=== PATIENT | female | born 1930 | race Caucasian/White ===

== ENCOUNTER 2016-11-07 12:16 | Emergency (ER) | payer OTHER ==
[~2016-11-07 12:16] MED LIST: CELECOXIB200 MG PO; COREG6.25 MG PO; COZAAR100 MG PO; EFFEXOR XR150 MG PO; GLIPIZIDE10 MG PO; I-CAPS WITH LU1 EACH PO; K-DUR20 ME1 PO; KOMBIGLYZE XR1 EAC2 PO; LASIX20 MG PO; NEXIUM PO; SIMVASTATIN40 MG PO
[2016-11-07] MEDS ORDERED: COREG6.25 MG PO (12:42)
[2016-11-07] MEDS ORDERED: COZAAR100 MG PO (12:42)
[2016-11-07] MEDS ORDERED: GLUCOTROL PO (12:43)
[2016-11-07] MEDS ORDERED: OMEPRAZOLE20 M2 PO (12:43)
[2016-11-07] MEDS ORDERED: K-TAB ER20 MEQ PO (12:43)
[2016-11-07] MEDS ORDERED: VENLAFAXINE HC150 M1 PO (12:44)
[2016-11-07] MEDS ORDERED: SIMVASTATIN40 MG PO (12:44)
[2016-11-07] MEDS ORDERED: TRADJENTA5 MG PO (12:44)
[2016-11-07] MEDS ORDERED: CELECOXIB200 M1 (12:45)
[2016-11-07] MEDS ORDERED: LASIX PO (12:45)
[2016-11-07] MEDS ORDERED: PIOGLITAZONE45 MG PO (12:45)
[2016-11-07 13:36] LABS: URINE APPEARANCE CLEAR; URINE BILIRUBIN NEG (NEG); URINE BLOOD TRACE-LYSED (NEG); URINE COLOR YELLOW; URINE KETONE NEG (NEG); URINE LEUKOCYTE ESTERASE 2+ (NEG); URINE NITRATE NEG (NEG); URINE PH 5.5 (5-8); URINE PROTEIN NEG (NEG); URINE SOURCE CLEAN CATCH; URINE UROBILINOGEN 0.2 MG/DL (NORM)
[2016-11-07 13:39] LABS: MICRO INDICATED? YES; URINE GLUCOSE NORM (NORM)
[2016-11-07 13:49] LABS: CULTURE INDICATED? YES; URINE BACTERIA 3+ (NEG); URINE RBC 0-2 /[HPF] (0-2); URINE SQUAMOUS EPITHELIAL CELL OCCAS /[HPF]; URINE WBC 25-50 /[HPF] (0-5)
== END 2016-11-07 14:18 | disposition home or self-care (01) ==
LOC: SED 12:16
PROVIDERS: Emergency Medicine
DX: N30.00 Acute cystitis without hematuria (principal); E11.65 Type 2 diabetes mellitus with hyperglycemia; I10 Essential (primary) hypertension; K21.9 Gastro-esophageal reflux disease without esophagitis; Z90.49 Acquired absence of other specified parts of digestive tract
CPT/HCPCS: 81003; 82947; 87086; 87088; 87186; 99283

== ENCOUNTER 2016-12-18 21:29 | Emergency (ER) | payer OTHER ==
--- NOTE | ~2016-12-18 | EKG ---
PATIENT: EMMA SILVA UNIT #: [id number] Ventricular Rate: 113 BPM Atrial Rate: 75 BPM QRS Duration: 86 ms Q-T Interval: 332 ms QTC Calculation(Bezet): 455 ms Calculated R [place]: -10 degrees Calculated T [place]: 118 degrees Diagnosis Line: Atrial fibrillation with rapid ventricular Diagnosis Line: response Diagnosis Line: Possible Anterior infarct , age undetermined Diagnosis Line: Abnormal ECG Diagnosis Line: When compared with ECG of 28-DEC-2014 12:24, Diagnosis Line: Atrial fibrillation has replaced Sinus rhythm Diagnosis Line: ST now depressed in Lateral leads Diagnosis Line: Nonspecific T wave abnormality no longer evident Diagnosis Line: in Inferior leads Diagnosis Line: Confirmed by REILLY GUERRA MD ([id number]) on Diagnosis Line: 12/20/2016 9:02:18 AM INTERPRETING MD: CHARLIE SANDERS
--- NOTE | ~2016-12-18 | CR72 ---
[facility]. [facility] A Service of [facility] & [facility] RADIOLOGY TEXT RESULTS PATIENT: EMMA SILVA LOCATION: SED : 32 UNIT #: [id number] AGE: [address]: Tenzin Lee MD SEX: F ORDER DR: [id number] [address] [address] [id number] E MR#: [id number] Acc #: [id number] NAME: EMMA SILVA : 1930 SEX: F STUDY DATE/TIME: 12/18/2016 22:23 UNIT: SED ROOM: STUDY DESCRIPTION: CR Chest Single View Portable Attending Physician: Tenzin Lee M.D. Ordering Physician: eTnzin Lee M.D. Primary Care Physician: Juan Alcazar M.D. MEDICAL IMAGING REPORT This report is preliminary unless electronic signature is present. EXAM Portable chest INDICATION Wheezing, high fever starting today. FINDINGS A portable view of the chest was obtained. There are low lung volumes. The heart size and vascularity are normal. There is interstitial prominence but there are no focal infiltrates. The bones are normal. IMPRESSION There does seem to be some interstitial prominence but this is probably due to poor inspiration. There are no focal infiltrates. Dictated by... Morgan Summers M.D. THIS IS AN ELECTRONICALLY VERIFIED REPORT Morgan Summers M.D. at 12/19/2016 5:54 AM LETY/yonas TD: 12/18/2016 23:54 JOB #: [id number] MEDICAL IMAGING REPORT Page 1 of 1
--- NOTE | ~2016-12-18 | CT71 ---
[facility] A Service [facility] RADIOLOGY TEXT RESULTS PATIENT: EMMA SILVA LOCATION: SED : 32 UNIT #: [id number] AGE: [address]: Tenzin Lee MD SEX: F ORDER DR: [id number] [place] [id number] E MR#: [id number] Acc #: [id number] NAME: EMMA SILVA : 1930 SEX: F STUDY DATE/TIME: 12/18/2016 22:27 UNIT: SED ROOM: STUDY DESCRIPTION: CT Head Wo Contrast Attending Physician: Tenzin Lee M.D. Ordering Physician: Tenzin Lee M.D. Primary Care Physician: Juan Alcazar M.D. MEDICAL IMAGING REPORT This report is preliminary unless electronic signature is present. EXAM CT scan of the brain without contrast. INDICATIONS Altered mental status with weakness. The patient is not herself. Symptoms started today. TECHNIQUE Unenhanced images were obtained through the brain. This CT exam was performed with one or more of the following radiation dose reduction techniques: automatic exposure control, adjustment of mA and/or kV according to patient size, and iterative reconstruction. FINDINGS There is marked generalized atrophy. There are no masses or extraaxial fluid collections or hemorrhage. IMPRESSION Generalized atrophy, otherwise, normal. Dictated by... Morgan Summers M.D. THIS IS AN ELECTRONICALLY VERIFIED REPORT Morgan Summers M.D. at 12/19/2016 5:54 AM Lalito TD: 12/18/2016 23:40 JOB #: [id number] [facility] A Service [facility] RADIOLOGY TEXT RESULTS PATIENT: EMMA SILVA LOCATION: SED : 32 UNIT #: [id number] AGE: [address]: Tenzin Lee MD SEX: F ORDER DR: MEDICAL IMAGING REPORT Page 1 of 1
[~2016-12-18 21:29] MED LIST changes: +CELECOXIB200 M1; +GLUCOTROL PO; +K-TAB ER20 MEQ PO; +LASIX PO; +OMEPRAZOLE20 M2 PO; +PIOGLITAZONE45 MG PO; +TRADJENTA5 MG PO; +VENLAFAXINE HC150 M1 PO
[2016-12-18 22:20] LABS: URINE SOURCE CLEAN CATCH
[2016-12-18 22:23] LABS: URINE APPEARANCE CLEAR; URINE BILIRUBIN NEG (NEG); URINE BLOOD 1+ (NEG); URINE COLOR YELLOW; URINE KETONE NEG (NEG); URINE LEUKOCYTE ESTERASE 2+ (NEG); URINE NITRATE POS (NEG); URINE PROTEIN TRACE (NEG); URINE UROBILINOGEN 0.2 MG/DL (NORM)
[2016-12-18 22:23] LABS: BASOPHIL% 0.1 % (0-2.5); EOSINOPHIL% 0.2 % (0.0-7.0); HEMATOCRIT 37.2 % (35.0-45.0); HEMOGLOBIN 12.4 gm/dL (12.0-16.0); INR 1.1; LYMPHOCYTE# 0.2 X10e3 (1.0-3.5); LYMPHOCYTE% 1.8 % (17.0-45.0); MEAN CORPUSCULAR HEMOGLOBIN 28.8 PG (28-34); MEAN CORPUSCULAR HGB CONC 33.4 g/dL (30-36); MONOCYTE# 0.3 X10e3 (0-1.0); NEUTROPHIL# 10.1 X10e3 (1.5-7.1); NEUTROPHIL% 94.9 % (40-75); PLATELET COUNT 168 X10e3 (140-420); RED BLOOD COUNT 4.33 X10e (3.90-5.30); RED CELL DISTRIBUTION WIDTH 17.7 % (11.0-15.5); WHITE BLOOD COUNT 10.7 X10e3 (4.0-10.5)
[2016-12-18 22:24] LABS: MICRO INDICATED? YES; URINE GLUCOSE 50 MG/DL (NORM)
[2016-12-18 22:25] LABS: DIFF IND NO
[2016-12-18 22:25] LABS: CULTURE INDICATED? YES; URINE BACTERIA 2+ (NEG); URINE RBC 0-2 /[HPF] (0-2); URINE SQUAMOUS EPITHELIAL CELL FEW /[HPF]
[2016-12-18 22:31] LABS: PARTIAL THROMBOPLASTIN TIME 24.5 SECONDS (25.6-38.1)
[2016-12-18 22:52] LABS: BUN/CREATININE RATIO 21.25; CALCIUM SERUM 8.3 mg/dL (8.4-10.2); CREATININE SERUM 1.6 mg/dL (0.6-1.4); GLOM FILT RATE Estimated 29.5 mL/min (>60); POTASSIUM 4.5 mmol/L (3.5-5.1)
[2016-12-19 11:12] LABS: POC - CKMB <1.0 ng/mL (0.0-7.9); POC - TROPONIN <0.05 ng/mL (<=0.05)
== END 2016-12-19 02:38 ==
LOC: SED 21:29
PROVIDERS: Emergency Medicine
DX: R41.0 Disorientation, unspecified (principal); N39.0 Urinary tract infection, site not specified; I48.91 Unspecified atrial fibrillation; E11.9 Type 2 diabetes mellitus without complications; I10 Essential (primary) hypertension; K21.9 Gastro-esophageal reflux disease without esophagitis; E78.5 Hyperlipidemia, unspecified; Z90.49 Acquired absence of other specified parts of digestive tract; Z79.899 Other long term (current) drug therapy
CPT/HCPCS: 36415; 51702; 70450; 71010; 80048; 81003; 82553; 83605; 84484; 85025; 85610; 85730; 87086; 87088; 87186; 93005; 96361; 96374; 99291; J0696

== ENCOUNTER 2016-12-25 15:40 | Emergency (ER) | payer OTHER ==
[~2016-12-25] VITALS: Ht 167.6 cm; Wt 85.7 kg
--- NOTE | ~2016-12-25 | US84 ---
[id number] [address] [address] [id number] E MR#: [id number] Acc #: [id number] NAME: EMMA SILVA : 1930 SEX: F STUDY DATE/TIME: 12/25/2016 17:46 UNIT: SED ROOM: STUDY DESCRIPTION: US LE Veins Complete Noam Stdy Attending Physician: Bob Fernando M.D. Ordering Physician: [id number] Abdullahi Fernando Primary Care Physician: Juan Alcazar M.D. MEDICAL IMAGING REPORT This report is preliminary unless electronic signature is present. EXAM Bilateral lower extremity venous ultrasound HISTORY Bilateral lower extremity swelling for 1 week. FINDINGS Ultrasound examination of the lower extremity veins was performed from the groin to the calf bilaterally with lundberg-scale, color Doppler and spectral Doppler evaluation. The visualized veins are patent and compressible. The peroneal veins were not visualized in the calves bilaterally. IMPRESSION No DVT or SVT in the lower extremities bilaterally. Dictated by... German Jerez M.D. THIS IS AN ELECTRONICALLY VERIFIED REPORT German Jerez M.D. at 12/26/2016 11:03 PM DFL/irener TD: 12/26/2016 04:30 JOB #: [id number] MEDICAL IMAGING REPORT Page 1 of 1
--- NOTE | ~2016-12-25 | EKG ---
PATIENT: EMMA SILVA UNIT #: [id number] Ventricular Rate: 76 BPM Atrial Rate: 75 BPM QRS Duration: 82 ms Q-T Interval: 414 ms QTC Calculation(Bezet): 465 ms Calculated R [place]: -5 degrees Diagnosis Line: Atrial fibrillation Diagnosis Line: Inferior infarct , age undetermined Diagnosis Line: Abnormal ECG Diagnosis Line: When compared with ECG of 18-DEC-2016 21:40, Diagnosis Line: Vent. rate has decreased BY 37 BPM Diagnosis Line: T wave inversion no longer evident in Lateral Diagnosis Line: leads Diagnosis Line: Confirmed by REILLY GUERRA MD ([id number]) on Diagnosis Line: 12/26/2016 12:56:48 PM INTERPRETING MD: CHARLIE SANDERS
--- NOTE | ~2016-12-25 | CR72 ---
[facility]. [facility] A Service of [facility] & [facility] RADIOLOGY TEXT RESULTS PATIENT: EMMA SILVA LOCATION: SED : 32 UNIT #: [id number] AGE: [address]: Bob August MD SEX: F ORDER DR: [id number] [address] [address] [id number] E MR#: [id number] Acc #: [id number] NAME: EMMA SILVA : 1930 SEX: F STUDY DATE/TIME: 12/25/2016 16:51 UNIT: SED ROOM: STUDY DESCRIPTION: CR Chest Single View Portable Attending Physician: Bob August M.D. Ordering Physician: Bob August M.D. Primary Care Physician: Juan Alcazar M.D. MEDICAL IMAGING REPORT This report is preliminary unless electronic signature is present. EXAM Portable chest HISTORY Shortness of air for 2 days. FINDINGS Cardiac size and pulmonary vascularity are within normal limits, allowing for shallow inspiration. No airspace infiltrates or effusions are identified. IMPRESSION No acute findings. Dictated by... German Jerez M.D. THIS IS AN ELECTRONICALLY VERIFIED REPORT German Jerez M.D. at 12/26/2016 11:02 PM DFL/psc TD: 12/26/2016 02:57 JOB #: [id number] MEDICAL IMAGING REPORT Page 1 of 1
[2016-12-25] MEDS ORDERED: ELIQUIS2.5 MG (15:45)
[2016-12-25 16:56] LABS: POC - CKMB 4.4 ng/mL (0.0-7.9); POC - TROPONIN <0.05 ng/mL (<=0.05)
[2016-12-25 17:00] LABS: BASOPHIL# 0.1 X10e3 (0-0.3); BASOPHIL% 1.3 % (0-2.5); EOSINOPHIL# 0.3 X10e3 (0-0.7); EOSINOPHIL% 4.5 % (0.0-7.0); HEMATOCRIT 32.5 % (35.0-45.0); HEMOGLOBIN 10.8 gm/dL (12.0-16.0); LYMPHOCYTE# 1.4 X10e3 (1.0-3.5); LYMPHOCYTE% 23.2 % (17.0-45.0); MEAN CELL VOLUME 86.6 FL (83-96); MEAN CORPUSCULAR HEMOGLOBIN 28.7 PG (28-34); MEAN CORPUSCULAR HGB CONC 33.1 g/dL (30-36); MEAN PLATELET VOLUME 8.5 FL (6.5-11.5); MONOCYTE# 0.5 X10e3 (0-1.0); MONOCYTE% 7.9 % (3.0-12.0); NEUTROPHIL# 3.8 X10e3 (1.5-7.1); NEUTROPHIL% 63.1 % (40-75); PLATELET COUNT 266 X10e3 (140-420); RED BLOOD COUNT 3.76 X10e (3.90-5.30); RED CELL DISTRIBUTION WIDTH 17.4 % (11.0-15.5)
[2016-12-25 17:19] LABS: ALBUMIN SERUM 3.2 g/dL (3.5-5.0); BILIRUBIN, DIRECT 0.1 mg/dL (0.0-0.2); BILIRUBIN,INDIRECT 0.1 mg/dL (0.0-0.9); BILIRUBIN,TOTAL 0.2 mg/dL (0.2-2.0); BUN/CREATININE RATIO 18.33; CREATININE SERUM 1.2 mg/dL (0.6-1.4); GLOM FILT RATE Estimated 41.5 mL/min (>60); POTASSIUM 4.4 mmol/L (3.5-5.1); PROTEIN TOTAL SERUM 6.9 g/dL (6.0-8.3)
[2016-12-25 17:28] LABS: DIFF IND NO
== END 2016-12-25 19:21 | disposition home or self-care (01) ==
LOC: SED 15:40
PROVIDERS: Emergency Medicine
DX: I11.0 Hypertensive heart disease with heart failure (principal); I50.9 Heart failure, unspecified; I48.91 Unspecified atrial fibrillation; R60.0 Localized edema; Z79.84 Long term (current) use of oral hypoglycemic drugs; Z79.899 Other long term (current) drug therapy
CPT/HCPCS: 36415; 71010; 80048; 80076; 82553; 83605; 83880; 84484; 85025; 87040; 93005; 93970; 94640; 99284